=== PATIENT | female | born 2000 ===

== ENCOUNTER 2023-08-08 21:11 | Emergency (ER) | payer OTHER, SELFPAY ==
[2023-08-08 21:16] VITALS: BP 112/79; PULSE 74; RESP 14; TEMP 37.2; O2SAT 98; BMI 22.5
[2023-08-08 21:37] LABS: MANUAL DIFF FLAG NO
[2023-08-08 21:39] LABS: Appearance Urine Hazy; Color Urine Orange; Glucose Urine UA 100 mg/dL (Negative); Leukocyte Esterase Urine Large (3+) (Negative); PH 5.5 (5.0-9.0); Specific Gravity - Urine 1.015 (1.005-1.025); UMIC TRIGGER UACC YES; Urine Blood Large (3+) (Negative); Urine Ketones Trace mg/dL (Negative); Urine Protein 30 (1+) mg/dL (Neg-Trace)
[2023-08-08 21:40] LABS: UPreg QC Valid YES; Urine Pregnancy NEGATIVE (NEGATIVE)
[2023-08-08 21:40] LABS: Basophils Absolute Auto 0.1 X10*3/uL (0.0-0.2); Basophils Percent Auto 0.5 % (0-2); Eosinophils Absolute Auto 0.1 X10*3/uL (0.0-0.4); Eosinophils Percent Auto 0.8 % (0-4); Hematocrit 36.9 % (37.0-47.0); Hemoglobin 12.4 g/dl (12.0-16.0); Imm Gran Abs Auto 0.02 X10*3/uL (0.00-0.03); Imm Gran Pct Auto 0.2 % (0.0-0.4); Lymphocytes Absolute Auto 3.1 X10*3/uL (1.2-4.9); Lymphocytes Percent Auto 25.1 % (20-40); Mean Corpuscular HGB Conc 33.6 g/dl (31.0-35.0); Mean Corpuscular Hemoglobin 28.2 pg (27.0-33.0); Mean Corpuscular Volume 84.1 fL (80.0-98.0); Mean Platelet Volume 9.2 fL (9.4-12.3); Monocytes Percent Auto 8.3 % (2-11); Neutrophils Percent Auto 65.1 % (45-73); Platelet Count 280 X10*3/uL (160-400); Red Blood Count 4.39 X10*6/uL (4.20-5.50); Red Cell Distribution Width 13.1 % (11.0-16.0); White Blood Count 12.2 X10*3/uL (4.8-10.8)
[2023-08-08 21:41] LABS: Nitrite Urine Positive (Negative)
[2023-08-08 21:44] LABS: Bacteria Urine 2+ (None Seen); Hyaline Casts Urine 0-2 /LPF (0-2); RBC Urine >20 /HPF (0-2); UACC Culture Trigger YES; WBC Urine >50 /HPF (0-5)
[2023-08-08 22:20] LABS: Anion Gap 15 (12-20); Blood Urea Nitrogen 15 mg/dL (9-16); Calcium 9.6 mg/dL (8.4-10.2); Carbon Dioxide 22 mmol/L (22-29); Chloride 107 mmol/L (96-108); Creatinine Clr Calc Pharmacy 91.2; Estimated Glomerular Filt Rate > 60; Glucose Random 74 mg/dL (60-115); Potassium 3.7 mmol/L (3.3-5.1); Sodium 140 mmol/L (135-145)
--- NOTE | 2023-08-09 00:46 | ED.GENADULT ---
HPI - General Adult General Chief complaint: Abdominal Pain Stated complaint: lower abd pain Time Seen by Provider: 08/09/23 00:34 Source: patient Mode of arrival: ambulatory Limitations: no limitations History of Present Illness HPI narrative: Patient comes to the emergency room complaining of 2 days of dysuria and hematuria. Patient denies flank pain. Patient complaining of suprapubic discomfort and cramping after urination. Patient denies fever or chills. Patient denies nausea or vomiting. Related Data Previous Rx's Medication Instructions Recorded levofloxacin 500 mg tablet 500 mg PO DAILY #6 tabs 08/09/23 phenazopyridine 100 mg tablet 100 mg PO TID 6 doses #6 tabs 08/09/23 Allergies Allergy/AdvReac Type Severity Reaction Status Date / Time No Known Allergies Allergy Verified 08/08/23 21:22 Review of Systems Review of Systems: Constitutional : No Weight loss, No Fever, No Chills, No Night Sweats, No Fatigue, No Malaise ENT/Mouth : No Hearing loss, No Ear Pain, No Nasal Congestion, No Sinus Pain, No Hoarseness, No sore throat, No Rhinorrhea, No Swallowing Difficulty Eyes: No Eye Pain, No Swelling, No Redness, No Foreign Body, No Discharge, No Vision Changes Cardiovascular : No Chest Pain, No SOB, No Dyspnea on Exertion, No Orthopnea, No Edema, No Palpitations Respiratory : No Cough, No Sputum, No Wheezing, No Smoke Exposure, No Dyspnea Gastrointestinal : No Nausea, No Vomiting, No Diarrhea, No Constipation, No abdominal Pain, No Hematochezia, No Melena Genitourinary : Complaining of Dysuria, urinary frequency and Hematuria, No Urinary Incontinence, No Flank Pain, No Urinary Flow Changes, No Hesitancy Musculoskeletal : No joint pain, No Myalgias, No Joint Swelling Skin : No Skin Lesions, No rash Neuro : No Weakness, No Numbness, No Paresthesias, No Loss of Consciousness, No Dizziness, No Headache Psych : No Anxiety/Panic, No Depression, No SI/HI/AH/VH, No Social Issues, Heme/Lymph: No Bruising, No Bleeding,No Lymphadenopathy Endocrine : No Polyuria, No Polydipsia, No Temperature Intolerance Physical Exam ED Vital Signs: Vital Signs - 24 hr 08/08/23 21:16 Temperature 98.9 F Pulse Rate 74 Respiratory Rate 14 Blood Pressure 112/79 Pulse Oximetry 98 Oxygen Delivery Method Room Air BMI result Body Mass Index 22.5 Const Other: Appearance: Alert. Oriented X3. No acute distress. Eyes: Pupils equal, round and reactive to light. ENT: Pharynx normal. Neck: Normal inspection. Neck supple. No lymph nodes noted. No crepitus CVS: Normal heart rate and rhythm. Pulses normal. Normal S1 and S2 Respiratory: No respiratory distress. Breath sounds normal. No Wheezing. No rales Abdomen: Soft and nontender. No rigidity. No distention. No flank pain Skin: Skin warm and dry. Normal skin color. Normal skin turgor. Extremities: No lower extremity edema. No Lacerations. No Rash Neuro: Oriented X 3. No motor deficit. No sensory deficit. Moving all extremities. No slurred speech. CN 2 through 12 grossly intact Psych: calm, cooperative, normal affect Medical Decision Making Medical Decision Making [facility] Narrative: -my interpretation of labs: White blood cell count 12.2, chemistry unremarkable, urinalysis positive for UTI. -patient has no fever, no flank pain, normal vitals, well-appearing, sepsis not suspected, pyelonephritis and kidney stones not suspected either. 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 Patient was provided with the phone number of Dr. Portillo's office Differential Diagnosis Differential Diagnoses: The differential diagnosis associated with the presentation includes (UTI, pyelonephritis, kidney stones) Lab Data [facility] Lab Attestation statement: I reviewed the patient's lab results. 08/08/23 21:31 08/08/23 21:31 Labs: Lab Results 08/08/23 08/08/23 Range/Units 21:31 21:32 WBC 12.2 H (4.8-10.8) X10*3/uL RBC 4.39 (4.20-5.50) X10*6/uL Hgb 12.4 (12.0-16.0) g/dl Hct 36.9 L (37.0-47.0) % MCV 84.1 (80.0-98.0) fL MCH 28.2 (27.0-33.0) pg MCHC 33.6 (31.0-35.0) g/dl RDW 13.1 (11.0-16.0) % Plt Count 280 (160-400) X10*3/uL MPV 9.2 L (9.4-12.3) fL Immature Gran % (Auto) 0.2 (0.0-0.4) % Neut % (Auto) 65.1 (45-73) % Lymph % (Auto) 25.1 (20-40) % [place] % (Auto) 8.3 (2-11) % Eos % (Auto) 0.8 (0-4) % Baso % (Auto) 0.5 (0-2) % Lymph # (Auto) 3.1 (1.2-4.9) X10*3/uL [place] # (Auto) 1.0 (0.1-1.2) X10*3/uL Eos # (Auto) 0.1 (0.0-0.4) X10*3/uL Baso # (Auto) 0.1 (0.0-0.2) X10*3/uL Abs Immat Gran (auto) 0.02 (0.00-0.03) X10*3/uL Absolute Neuts (auto) 8.0 (2.0-8.3) x10*3/uL Absolute Nucleated RBC 0.000 (0.0-0.012) X10*3/uL Nucleated RBC % (auto) 0.0 (0.0-0.2) /100WBC Sodium 140 (135-145) mmol/L Potassium 3.7 (3.3-5.1) mmol/L Chloride 107 (96-108) mmol/L Carbon Dioxide 22 (22-29) mmol/L Anion Gap 15 (12-20) BUN 15 (9-16) mg/dL Creatinine 0.80 (0.5-1.4) mg/dL Estim Creat Clear Calc 91.2 Estimated GFR > 60 Random Glucose 74 (60-115) mg/dL Calcium 9.6 (8.4-10.2) mg/dL Urine Color [place] Urine Appearance Hazy Urine pH 5.5 (5.0-9.0) Ur Specific [place] 1.015 (1.005-1.025) Urine Protein 30 (1+) H (Neg-Trace) mg/dL Urine Glucose (UA) 100 H (Negative) mg/dL Urine Ketones Trace (Negative) mg/dL Urine Blood Large (3+) H (Negative) Urine Nitrite Positive H (Negative) Ur Leukocyte Esterase Large (3+) H (Negative) Urine RBC >20 H (0-2) /HPF Urine WBC >50 H (0-5) /HPF Ur Squamous Epith Cells 11-20 (0-2) /HPF Urine Bacteria 2+ (None Seen) Hyaline Casts 0-2 (0-2) /LPF Urine Test NEGATIVE (NEGATIVE) Discharge Plan Discharge Clinical Impression: Urinary tract infection Patient Disposition: Home, Self-Care Instructions: Urinary Tract Infection in Women (ED) Additional Instructions: Please follow-up with your primary care physician tomorrow. If you have any worsening or new symptoms, please return to the emergency room or call 911 Prescriptions: New levofloxacin 500 mg tablet 500 mg PO DAILY Qty: 6 0RF phenazopyridine 100 mg tablet 100 mg PO TID Qty: 6 0RF Referrals: Rupert Portillo MD [Physician] - (establishing care )
[2023-08-09] MEDS: levoFLOXacin 500 MG TABLET PO (01:40)
[2023-08-09 01:41] VITALS: BP 119/66; PULSE 80; RESP 16; O2SAT 98
[2023-08-09] MEDS: Phenazopyridine HCL 100 MG TABLET PO (01:41)
== END 2023-08-09 01:47 | disposition home or self-care (01) ==
PROVIDERS: Emergency Provider Emergency Medicine
DX: N39.0 Urinary tract infection, site not specified (principal); B96.20 Unspecified Escherichia coli [E. coli] as the cause of diseases classified elsewhere
CPT/HCPCS: 36415; 80048; 81001; 81025; 85025; 87086; 87088; 87186; 99283; 99284

== ENCOUNTER 2023-11-12 05:38 | Emergency (ER) | payer OTHER, SELFPAY ==
[2023-11-12 05:53] VITALS: BP 126/59; PULSE 76; RESP 18; TEMP 37; O2SAT 99; BMI 23.3
[2023-11-12 06:05] LABS: MANUAL DIFF FLAG NO
[2023-11-12 06:06] LABS: Basophils Percent Auto 0.3 % (0-2); Eosinophils Absolute Auto 0.1 X10*3/uL (0.0-0.4); Hematocrit 34.8 % (37.0-47.0); Hemoglobin 11.3 g/dl (12.0-16.0); Imm Gran Abs Auto 0.03 X10*3/uL (0.00-0.03); Imm Gran Pct Auto 0.3 % (0.0-0.4); Lymphocytes Absolute Auto 2.5 X10*3/uL (1.2-4.9); Lymphocytes Percent Auto 23.4 % (20-40); Mean Corpuscular HGB Conc 32.5 g/dl (31.0-35.0); Mean Corpuscular Hemoglobin 27.6 pg (27.0-33.0); Mean Corpuscular Volume 85.1 fL (80.0-98.0); Mean Platelet Volume 9.4 fL (9.4-12.3); Monocytes Absolute Auto 0.8 X10*3/uL (0.1-1.2); Platelet Count 248 X10*3/uL (160-400); Red Blood Count 4.09 X10*6/uL (4.20-5.50); Red Cell Distribution Width 13.2 % (11.0-16.0); White Blood Count 10.5 X10*3/uL (4.8-10.8)
--- NOTE | 2023-11-12 06:06 | MHC.EDTECH ---
Patient brought into triage,labs,and a urine sample obtained and sent to lab.patient brought to ED room 1
[2023-11-12 06:08] LABS: UPreg QC Valid YES; Urine Pregnancy NEGATIVE (NEGATIVE)
[2023-11-12 06:12] LABS: Appearance Urine Turbid; Color Urine BROWN; Glucose Urine UA Negative (Negative); Leukocyte Esterase Urine Negative (Negative); Nitrite Urine Negative (Negative); Specific Gravity - Urine >= 1.030 (1.005-1.025); UMIC TRIGGER UACC YES; Urine Blood Large (3+) (Negative); Urine Ketones Negative (Negative); Urine Protein 300 (3+) mg/dL (Neg-Trace)
[2023-11-12 06:16] LABS: Bacteria Urine 2+ (None Seen); Hyaline Casts Urine 0-2 /LPF (0-2); RBC Urine >20 /HPF (0-2); UACC Culture Trigger YES; WBC Urine >50 /HPF (0-5)
[2023-11-12 06:26] LABS: Alanine Aminotransferase 9 U/L (0-31); Albumin Level 3.9 g/dL (3.5-5.0); Alkaline Phosphatase 41 U/L (39-117); Anion Gap 11 (12-20); Aspartate Amino Transferase 15 U/L (5-31); Bilirubin Total 0.6 mg/dL (0.0-1.0); Blood Urea Nitrogen 13 mg/dL (9-16); Carbon Dioxide 24 mmol/L (22-29); Chloride 108 mmol/L (96-108); Creatinine Clr Calc Pharmacy 93.4; Estimated Glomerular Filt Rate > 60; Glucose Random 106 mg/dL (60-115); Lipase 16 U/L (8-78); Potassium 3.6 mmol/L (3.3-5.1); Sodium 139 mmol/L (135-145); Total Protein 6.7 g/dL (6.5-8.0)
--- NOTE | 2023-11-12 06:37 | PC.NURSE ---
Pt reports suprapubic pain 10/10 x1 day with burning, frequency, and hematuria. Pt denies flank pain, n/v/d. Pt reports IUD placed about a month ago. Family at bedside. Plan of care ongoing.
--- NOTE | 2023-11-12 06:38 | ED_ITS ---
HPI - Female Genitourinary General Chief complaint: Urogenital-Female Stated complaint: ?UTI Time Seen by Provider: 11/12/23 06:34 Source: patient Mode of arrival: ambulatory Limitations: no limitations History of Present Illness HPI Narrative: Patient is a 22 year old assigned female at with no reported medical history presenting to the emergency department today with lower abdominal pain with associated pain with urination and increased urinary frequency. Patient states that over the last 2 days she has had lower abdominal pain with increased urinary pain and burning. Patient denies any dizziness, lightheadedness, abdominal pain, nausea, vomiting, fever, chills, blurry vision, double vision, loss of vision, chest pain, difficulty breathing, shortness of breath, back pain, night sweats, pain with urination, increased urinary frequency, increased urinary urgency, blood in her urine or stool, syncope or a near syncopal episode, recent trauma or falls, bowel incontinence, bladder incontinence, bowel retention, bladder retention, or any other complaints at this time. MD elicited complaint: dysuria Related Data Previous Rx's Medication Instructions Recorded levofloxacin 500 mg tablet 500 mg PO DAILY #6 tabs 08/09/23 phenazopyridine 100 mg tablet 100 mg PO TID 6 doses #6 tabs 08/09/23 cefuroxime axetil 250 mg tablet 250 mg PO BID 7 days #14 tabs 11/12/23 Allergies Allergy/AdvReac Type Severity Reaction Status Date / Time No Known Allergies Allergy Verified 11/12/23 05:56 Review of Systems 2 Constitutional: Constitutional: Reports no additional constitutional complaints, Denies chills, Denies fever(s) and Denies night sweats Eyes: Eyes: Reports no additional eye complaints, Denies blurry vision, Denies change in vision, Denies diplopia, Denies eye discharge, Denies loss of vision and Denies eye pain ENT: Denies dizziness Cardiovascular: Cardiovascular: Reports no additional cardiovascular complaints, Denies chest pain, Denies lightheadedness, Denies Loss of Consciousness and Denies dyspnea Respiratory: Respiratory: Reports no additional respiratory complaints and Denies dyspnea Gastrointestinal: Gastrointestinal: Reports no additional gastrointestinal complaints, Reports abdominal pain, Denies melena, Denies hematochezia, Denies change in bowel habits and Denies change in stool character Genitourinary: Genitourinary: Denies hematuria, Denies urinary frequency, Reports dysuria, Denies urinary incontinence and Denies urinary hesitancy Musculoskeletal: Musculoskeletal: Reports no additional musculoskeletal complaints, Denies numbness and Denies tingling Neurologic: Denies dizziness, Denies loss of vision, Denies numbness and Denies tingling Psychiatric: Psychiatric: Reports no additional psychiatric complaints Endocrine: Endocrine: Reports no additional endocrine complaints Hematologic/Lymphatic: Hematologic/Lymphatic: Reports no additional hematologic/lymphatic complaints Allergic/Immunologic: Allergic/Immunologic: Reports no additional allergic/immunologic complaints ON LICENSE OF [facility] Past Medical History Attestation statement: The following information was validated with the patient. Source: old records reviewed and nursing notes reviewed Social History Social History Alcohol intake: never Smoked in Last 30 Days: No Use of substances other than those prescribed or required for medical reasons: No Advance Directives: No Advance Directives Information Provided: Yes Physical Exam 2 Vital Signs: Vital Signs: Last Vital Signs Temp 98.1 F 11/12/23 07:37 Pulse 78 11/12/23 07:37 Resp 18 11/12/23 07:37 BP 104/61 11/12/23 07:37 Pulse Ox 98 11/12/23 07:37 O2 Del Method Room Air 11/12/23 07:37 BMI result Body Mass Index 23.3 Const: General: cooperative, no acute distress, alert and awake Nutritional Appearance: well nourished Orientation/consciousness: patient oriented x3 Limitations: no limitations HEENT: Head: Yes normal to inspection and Yes atraumatic Ears: hearing grossly normal bilaterally and external ears normal General nose exam: Normal external nose present, no nasal discharge noted and no epistaxis Face and sinus: Yes normal facial exam, No abrasion and No laceration Mouth: Normal oral and palatal mucosa present, no drooling and no muffled voice Eyes: General: appearance normal, both eyes and all related structures P eriorbital: periorbital findings normal Eyelids: Yes eyelids normal C onjunctivae: conjunctivae normal Pupils: Equal, round and reactive pupils present EOM: EOMs intact bilaterally Neck: Neck: Yes normal visual inspection, Yes full ROM and Yes no lymphadenopathy Chest: Chest palpation & inspection: normal inspection of the chest Resp: Effort & Inspection: normal respiratory effort and able to speak in complete sentences GI: Inspection: Yes normal to inspection Palpation (GI): Soft to palpation, not firm, nontender and no guarding Neuro: General: patient oriented x3 and moves all extremities Cranial nerves: Yes Equal, round and reactive pupils present Cognition (Neuro): n ormal cognition Motor exam (neuro): 5/5 motor strength present throughout Sensory Exam: Normal double simultaneous stimulation for sensation C oordination: [id number] test normal Extrem: General: Yes normal to inspection, Yes full ROM and Yes capillary refill normal Psych: Appearance: grossly normal Mental Status: mental status grossly normal Affect: normal affect Attitude: cooperative Thought process: N ormal thought process present Thought content: Normal thought content present Insight: Good insight present (Psych) Medications Administered Discontinued Medications Generic Name Dose Route Start Last Admin Trade Name Jayy PRN Reason Stop Dose Admin Cefuroxime Axetil 250 mg 11/12/23 06:56 11/12/23 07:39 Cefuroxime Axetil 250 Mg Tablet PO 11/12/23 06:57 250 mg ONCE ONE Administration Medical Decision Making Medical Decision Making [facility] Narrative: Patient is a 22 year old assigned female at with no reported medical history presenting to the emergency department today with abdominal pain and painful urination. Patient's physical exam was unremarkable. Patient's blood work was unremarkable. Patient's urine showed evidence of a UTI. I explained my physical exam findings as well as all test results to the patient. I answered all questions asked by the patient. I stressed the importance of the patient taking her medication as prescribed. I stressed the importance of the patient following up with her primary care provider. I stressed the importance of the patient returning to the emergency department immediately if her symptoms were to worsen or if she were to develop any dizziness, shortness of breath, difficulty breathing, chest pain, blurry vision, loss of vision, nausea, vomiting, abdominal pain, fever, chills, back pain, or any other complaints. Patient verbalized agreement and understanding with this treatment plan and discharge. Differential Diagnosis Differential Diagnoses: The differential diagnosis associated with the presentation includes UTI Abdominal pain Admission/Observation Consideration of admission/observation: Escalation of care including admission/observation considered Patient would have been admitted to the hospital had her work up had any findings where hospital admission was appropriate and her clinical presentation warranted hospital admission. Lab Data [facility] Lab Attestation statement: I reviewed the patient's lab results. My interpretation of these results are in the MDM Rationale portion of this note. 11/12/23 05:59 11/12/23 05:59 Labs: Lab Results 11/12/23 Range/Units 05:59 WBC 10.5 (4.8-10.8) X10*3/uL RBC 4.09 L (4.20-5.50) X10*6/uL Hgb 11.3 L (12.0-16.0) g/dl Hct 34.8 L (37.0-47.0) % MCV 85.1 (80.0-98.0) fL MCH 27.6 (27.0-33.0) pg MCHC 32.5 (31.0-35.0) g/dl RDW 13.2 (11.0-16.0) % Plt Count 248 (160-400) X10*3/uL MPV 9.4 (9.4-12.3) fL Immature Gran % (Auto) 0.3 (0.0-0.4) % Neut % (Auto) 67.0 (45-73) % Lymph % (Auto) 23.4 (20-40) % [place] % (Auto) 8.0 (2-11) % Eos % (Auto) 1.0 (0-4) % Baso % (Auto) 0.3 (0-2) % Lymph # (Auto) 2.5 (1.2-4.9) X10*3/uL [place] # (Auto) 0.8 (0.1-1.2) X10*3/uL Eos # (Auto) 0.1 (0.0-0.4) X10*3/uL Baso # (Auto) 0.0 (0.0-0.2) X10*3/uL Abs Immat Gran (auto) 0.03 (0.00-0.03) X10*3/uL Absolute Neuts (auto) 7.0 (2.0-8.3) x10*3/uL Absolute Nucleated RBC 0.000 (0.0-0.012) X10*3/uL Nucleated RBC % (auto) 0.0 (0.0-0.2) /100WBC Sodium 139 (135-145) mmol/L Potassium 3.6 (3.3-5.1) mmol/L Chloride 108 (96-108) mmol/L Carbon Dioxide 24 (22-29) mmol/L Anion Gap 11 L (12-20) BUN 13 (9-16) mg/dL Creatinine 0.85 (0.5-1.4) mg/dL Estim Creat Clear Calc 93.4 Estimated GFR > 60 Random Glucose 106 (60-115) mg/dL Calcium 9.0 D (8.4-10.2) mg/dL Total Bilirubin 0.6 (0.0-1.0) mg/dL AST 15 (5-31) U/L ALT 9 (0-31) U/L Alkaline Phosphatase 41 (39-117) U/L Total Protein 6.7 (6.5-8.0) g/dL Albumin 3.9 (3.5-5.0) g/dL Lipase 16 (8-78) U/L Urine Color [place] Urine Appearance Turbid Urine pH 6.0 (5.0-9.0) Ur Specific [place] >= 1.030 H (1.005-1.025) Urine Protein 300 (3+) H (Neg-Trace) mg/dL Urine Glucose (UA) Negative (Negative) mg/dL Urine Ketones Negative (Negative) mg/dL Urine Blood Large (3+) H (Negative) Urine Nitrite Negative (Negative) Ur Leukocyte Esterase Negative (Negative) Urine RBC >20 H (0-2) /HPF Urine WBC >50 H (0-5) /HPF Ur Squamous Epith Cells 6-10 (0-2) /HPF Urine Bacteria 2+ (None Seen) Hyaline Casts 0-2 (0-2) /LPF Urine Test NEGATIVE (NEGATIVE) Prescription Management I considered prescription management with: Antibiotic (patient prescribed an antibiotic for UTI) Discharge Plan Discharge Clinical Impression: Urinary tract infection Patient Disposition: Home, Self-Care Instructions: Urinary Tract Infection in Women (DC) Additional Instructions: Follow up with your primary care provider. Return to the emergency department immediately if your symptoms worsen or if you develop any dizziness, shortness of breath, difficulty breathing, chest pain, blurry vision, loss of vision, nausea, vomiting, abdominal pain, fever, chills, back pain, or any other complaints. Prescriptions: New cefuroxime axetil 250 mg tablet 250 mg PO BID 7 Days Qty: 14 0RF No Action levofloxacin 500 mg tablet 500 mg PO DAILY Qty: 6 0RF phenazopyridine 100 mg tablet 100 mg PO TID Qty: 6 0RF [place] [facility] [place] [facility] [place] (Call to establish and follow up with a primary care provider. If you already have a primary care provider, please follow up with them.) [facility] [place] [facility] [place] (Call to establish and follow up with a primary care provider. If you already have a primary care provider, please follow up with them.) [facility] [place] [facility] [place] (Call to establish and follow up with a primary care provider. If you already have a primary care provider, please follow up with them.) Interventions: ED Discharge Assessment Last Done: 11/12/23 07:43 Discharge Date/Time: 11/12/23 07:46 Print Language: [place]
--- OUTSIDE RECORDS SUMMARY | 2023-11-12 06:51 | XMS_ITS | Patient Health Record ---
Author Name Unknown Organization [facility] 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 Unavailable Flakita vailable ALLERGIES No Known Allergies ENCOUNTERS from 2000 to 2023-11-12 Encounter Location Date Provider Diagnosis OB/CDE-[address] [place] [address] 19 Sep, 2023 Usha Morales Encounter for insertion of intrauterine contraceptive device (IUD) Z30.430 OB/CDE-[address] [place], [place] [id number] 12 Sep, 2023 Fouzia Flater Pelvic cramping R10. 2 and control counseling Z30.09 Peds-[address] [place], [place] [id number] 06 Sep, 2023 Fouzia Flater OB/CDE-[address] [place] [address] 17 Aug, 2023 Fouzia Flater Pelvic pain R10.2 Peds-[address] [place], [place] [id number] 13 Aug, 2023 [facility] SOCIAL HISTORY Tobacco Use: Social History Observation Description Date Details (start date - stop date) Never Smoker Sex Assigned At : Social History Observation Description Sex Assigned At Unknown Alcohol Screen Question Answer Notes Did you have a drink containing alcohol in the p ast year? No Points 0 Interpretation Negative Tobacco Use/Smoking Question Answer Notes Are you a never smoker Sexual History Question Answer Notes Had sex in the past 12 months (vaginal, oral, or anal)? Yes Last menstrual period 08/2023 with Men only Use protection? No REASON FOR REFERRAL No Information VITAL SIGNS from 2000 to 2023-11-12 Weight 145.4 lbs Sep, Height 65 in in Sep, Heart Rate 74 /min Sep, Respiratory Rate 18 /min Sep, BMI 24.19 kg/m2 Sep, Oximetry 97 % Sep, Height-cm 165.1 cm Sep, Weight-kg 65.95 kg Sep, Blood pressure systolic 112 mm Hg Sep, Blood pressure diastolic 69 mm Hg Sep, MEDICATIONS Medication SIG (Take, Route, Frequency, Duration) Notes Start Date End Date Status Liletta (52 MG) 20.1 MCG/DAY as directed Intrauterine for 365 days 10/08 insertion [id number] Active Ibuprofen 800 MG 1 tablet with food o r milk as needed Orally every 8 hrs for 3 days Active Depo-Provera 150 MG/ML 1 mL Intramuscular Active RESULTS from 2000 to 2023-11-12 Component Value Reference Range Notes Test, Urine# Reviewed date:10/08/2023 12:20:51 Interpretation:Negative Performing Lab:[place], [id number] Notes/Report: Test Internal PASS Test, Urine NEG negative - Urinalysis# Reviewed date:10/01/2023 12:20:13 Interpretation: Performing Lab:[place], [id number] Notes/Report: Cuff Folder Performed pass Lot Number [id number] GLU neg Negative - DASIA 1 Negative - KET neg Negative - Specific [place] 1.020 1.001 - 1.035 Blood 250 Negative - pH 5 5 - 8 Protein 30 Negative - Urobiligen 2 Normal - Nitrite neg Negative - Leukocyle Esterase 25 Negative - RBC WBC SURESWAB ADVANCED VAGINITIS PLUS, TMA Reviewed date:10/02/2023 16:33:45 Interpretation: Performing Lab:[facility] [place], [facility], [address] [place] [address], [id number] Evelyn Joseph M.D., ,[place], [address] Notes/Report: MYLES GLABRATA NOT DETECTED NOT DETECTED MYLES SPECIES NOT DETECTED NOT DETECTED CHLAMYDIA TRACHOMATIS RNA, TMA, UROGENITAL NOT DETECTE D NOT DETECTED NEISSERIA GONORRHOEAE RNA, TMA, UROGENITAL NOT DETECTE D NOT DETECTED SURESWAB(R) ADV BACTERIAL VAGINOSIS (BV), TMA NEGATIVE NEGATIVE TRICHOMONAS VAGINALIS (TV), TMA NOT DETECTED NOT DETEC GILL CULTURE, URINE, ROUTINE Reviewed date:10/04/2023 11:01:15 Interpretation:mixed Performing Lab:[facility] [place], [employer], [address] [place] [address], [phone] Evelyn [address] M[place]., ,[place], [id number] Notes/Report: CULTURE, URINE, ROUTINE SEE NOTE Ultrasound : Pelvic Non/OB Reviewed date:09/26/2023 16:10:00 Interpretation:normal Performing Lab:[place], [address] Notes/Report: REASON FOR VISIT No Information MENTAL STATUS No Information ASSESSMENTS Encounter Date Diagnosis Assessment Notes Treatment Notes Treatment Clinical Notes Sep, Encounter for insertion of intrauterine contraceptive device (IUD) (ICD-10 - Z30.430) IUD placed without incident. Discussed common s/e and irregular bleeding pattern with device. Nothing in the vagina x 48 hours. Ibuprofen every 6 hours as needed for pain. Advised yearly string check with annual exams. Use back up control method or abstain from intercourse x 7 days. Patient verbalized understanding and agreement with plan. Sep, Pelvic cramping (ICD-10 - R10.2) May be secondary to depo use. Negative ultrasound completed. Given hx of UTI, will recheck urine today. Will also send for swab to r/o infection and complete STD screening prior to IUD insertion. Rev'd safe sex practices, ways to maintain vaginal christine. Encouraged daily probiotic. Discussed warning signs and when to seek additional medical treatment, patient verbalized agreement and understanding. Sep, control counseling (ICD-10 - Z30.09) Patient interested in alternative method of control. She had regular periods prior to OCP use, which have only worsened with depo and she would like to discontinue at this time. Rev'd options for control including pills, patch, ring, injection, implant, IUD. Patient interested in IUD at this time. Patient informed that IUD may be used up to 8 years. Effects of progestin may cause spotting or irregular menses, especially during the first 3 months of use. Also informed that LNG IUD method may cause amenorrhea, especially with prolonged use. Reviewed the small risk of infection, perforation, or expulsion. Rx sent for device, instructed to premedicate with NSAID on day of insertion. Insertion scheduled for next week. Patient verbalized agreement and understanding, all questions answered. Aug, Pelvic pain (ICD-10 - R10.2) Discussed various reasons for pelvic pain including: sexually transmitted infections, uterine fibroids, ovarian cysts, torsion, pelvic congestion, and idiopathic pain. Recent infection testing unremarkable aside from UTI which has resolved. Counseled on option for diagnostic imaging. Pt is requesting imaging at this time. Fax sent and pt provided with info to call to schedule appt. Advised heat therapy and NSAIDs prn. Will follow up to discuss alternative control options pending results of ultrasound. Discussed warning signs and when to seek additional medical treatment, patient verbalized agreement and understanding. PLAN OF TREATMENT Medication Medication Name Sig Start Date Stop Date Ibuprofen 800 MG 1 tablet with food o r milk as needed Orally every 8 hrs for 3 days Treatment Notes Assessment Notes Clinical Notes Pelvic cramping May be secondary to depo use. Negative ultrasound completed. Given hx of UTI, will recheck urine today. Will also send for swab to r/o infection and complete STD screening prior to IUD insertion. Rev'd safe sex practices, ways to maintain vaginal christine. Encouraged daily probiotic. Discussed warning signs and when to seek additional medical treatment, patient verbalized agreement and understanding. control counseling Patient interested in alternative method of control. She had regular periods prior to OCP use, which have only worsened with depo and she would like to discontinue at this time. Rev'd options for control including pills, patch, ring, injection, implant, IUD. Patient interested in IUD at this time. Patient informed that IUD may be used up to 8 years. Effects of progestin may cause spotting or irregular menses, especially during the first 3 months of use. Also informed that LNG IUD method may cause amenorrhea, especially with prolonged use. Reviewed the small risk of infection, perforation, or expulsion. Rx sent for device, instructed to premedicate with NSAID on day of insertion. Insertion scheduled for next week. Patient verbalized agreement and understanding, all questions answered. Pelvic pain Discussed variou s reasons for pelvic pain including: sexually transmitted infections, uterine fibroids, ovarian cysts, torsion, pelvic congestion, and idiopathic pain. Recent infection testing unremarkable aside from UTI which has resolved. Counseled on option for diagnostic imaging. Pt is requesting imaging at this time. Fax sent and pt provided with info to call to schedule appt. Advised heat therapy and NSAIDs prn. Will follow up to discuss alternative control options pending results of ultrasound. Discussed warning signs and when to seek additional medical treatment, patient verbalized agreement and understanding. Encounter for insertion of intrauterine contraceptive device (IUD) IUD placed without incident. Discussed common s/e and irregular bleeding pattern with device. Nothing in the vagina x 48 hours. Ibuprofen every 6 hours as needed for pain. Advised yearly string check with annual exams. Use back up control method or abstain from intercourse x 7 days. Patient verbalized understanding and agreement with plan. Next Appt Details Provider Name:Usha Morales, 01:00:00 PM, [address] [place], [id number], Provider Name:Asuncion fry, 2023-12-16 10:00:00 AM, [address] [place], [address],
[2023-11-12 07:37] VITALS: BP 104/61; PULSE 78; RESP 18; TEMP 36.7; O2SAT 98
[2023-11-12] MEDS: cefuroxime axetiL 250 MG TABLET PO (07:39)
== END 2023-11-12 07:46 | disposition home or self-care (01) ==
PROVIDERS: Emergency Provider Emergency Medicine Emergency Medical Services
DX: N39.0 Urinary tract infection, site not specified (principal)
CPT/HCPCS: 36415; 80053; 81001; 81025; 83690; 85025; 87086; 99283; 99284

== ENCOUNTER 2023-12-17 00:27 | Emergency (ER) | payer OTHER, SELFPAY ==
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
[2023-12-17 00:30] VITALS: BP 109/65; PULSE 102; RESP 18; TEMP 36.8; O2SAT 98; BMI 24.1
[2023-12-17 00:55] VITALS: BP 115/68; PULSE 91; RESP 16; TEMP 36.9; O2SAT 98
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
[2023-12-17] MEDS: Morphine Sulfate Immed Release 15 MG TABLET PO (03:05)
[2023-12-17 05:10] VITALS: BP 109/58; PULSE 77; RESP 16; O2SAT 98
[2023-12-17] MEDS: oxyCODONE HCl Immed Release 5 MG TABLET 10 MG PO (06:42)
[2023-12-17] MEDS: Ibuprofen 600 MG TABLET PO (06:43)
== END 2023-12-17 06:56 | disposition home or self-care (01) ==
PROVIDERS: Emergency Provider Internal Medicine
DX: S83.91XA Sprain of unspecified site of right knee, initial encounter (principal); S83.92XA Sprain of unspecified site of left knee, initial encounter; M25.562 Pain in left knee; M25.561 Pain in right knee; Y93.23 Activity, snow (alpine) (downhill) skiing, snowboarding, sledding, tobogganing and snow tubing; Y93.9 Activity, unspecified; Y92.9 Unspecified place or not applicable; Y99.8 Other external cause status; Z79.899 Other long term (current) drug therapy
CPT/HCPCS: 73700; 99284

== ENCOUNTER 2024-02-06 19:32 | Emergency (ER) | payer OTHER, SELFPAY ==
--- NOTE | ~2024-02-06 | CT_ITS ---
EXAMINATION: NONCONTRAST HEAD CT NONCONTRAST CERVICAL SPINE CT INDICATION INFORMATION: Fall COMPARISON: None TECHNIQUE: Separate noncontrast CT examinations of the head and cervical spine were performed. Coronal head CT images and coronal and sagittal cervical spine images were created at the technologist workstation. DLP: 1035 mGy-cm DOSE LOWERING TECHNIQUES: This CT examination was performed using dose optimization techniques as appropriate, variously including the following: - Automated exposure control - Adjustment of mA and/or kV according to patient size (this includes techniques or standardized protocols for targeted exams were dose is matched to indication/reason for exam; i.e. extremities or head) - Use of iterative reconstruction technique FINDINGS: Head: There is no evidence of acute intracranial hemorrhage or territorial infarction. No abnormal mass-effect or midline shift is seen. Gaviria to white matter differentiation is well preserved. No extra-axial fluid collections are identified. The ventricles are normal in size. There is no abnormal attenuation within the brain parenchyma. The osseous structures and soft tissues are normal. The mastoid air cells and visualized portions of the paranasal sinuses are well-aerated. Cervical spine: There is reversal of the normal cervical lordosis, which could be due to positioning or muscle spasm. There is anatomic alignment of the vertebral bodies and posterior elements. Vertebral body heights are maintained. Intervertebral disc spaces are preserved. No evidence of acute fracture. No prevertebral soft tissue swelling. Visualized portions of the lung apices are unremarkable. The thyroid gland is unremarkable. CT/CT cervical spine wo IV con IMPRESSION: No acute findings identified in the head or cervical spine. Reversal of the normal cervical lordosis could be due to positioning or muscle spasm.
[2024-02-06 20:15] VITALS: BP 110/65; PULSE 81; RESP 16; TEMP 36.3; O2SAT 98; BMI 23.3
--- NOTE | 2024-02-06 20:24 | ED_ITS ---
HPI - General Adult General Chief complaint: Fall Stated complaint: fell last night/neck pain Time Seen by Provider: 02/07/24 00:35 Source: patient, RN notes reviewed and old records reviewed Mode of arrival: ambulatory Limitations: no limitations History of Present Illness HPI narrative: 23-year-old female with no significant past medical history presents for evaluation of neck pain and headache. Patient reports that she fell approximately 24 hours ago hitting the left side of her neck and had a on a step She reports falling off approximately 2 steps She denies loss of consciousness She woke up this some morning with severe neck pain. Denies any numbness, tingling Denies any blurry vision, nausea vomiting She has not anticoagulated She used ibuprofen 8 hours ago with some relief in her symptoms Related Data Previous Rx's ?Medication ?Instructions ?Recorded levofloxacin 500 mg tablet 500 mg PO DAILY #6 tabs 08/09/23 phenazopyridine 100 mg tablet 100 mg PO TID 6 doses #6 tabs 08/09/23 cefuroxime axetil 250 mg tablet 250 mg PO BID 7 days #14 tabs 11/12/23 ibuprofen 600 mg tablet 600 mg PO Q6H PRN fever or pain 12/17/23 #30 tabs morphine 15 mg immediate release 15 mg PO Q8H PRN pain #20 tabs 12/17/23 tablet cyclobenzaprine 10 mg tablet 10 mg PO TID PRN muscle spasm #15 02/07/24 tabs Allergies Allergy/AdvReac Type Severity Reaction Status Date / Time No Known Allergies Allergy Verified 02/06/24 20:20 Review of Systems Constitutional: Constitutional: Denies body ache(s), Denies chills, Denies fever(s) and Reports headache(s) Eyes: Eyes: Denies blurry vision ENT: Reports headache(s), Reports neck pain and Denies sore throat Cardiovascular: Cardiovascular: Denies chest pain, Denies chest pain at rest and Denies dyspnea Respiratory: Respiratory: Denies cough and Denies dyspnea Gastrointestinal: Gastrointestinal: Denies abdominal pain, Denies nausea and Denies vomiting Musculoskeletal: Musculoskeletal: Denies back pain, Denies arthralgias, Denies joint swelling, Denies limited range of motion and Reports neck pain Integumentary/Breasts: Skin/Breast: Denies rash Neurologic: Reports headache(s) [facility] Social History Social History Alcohol intake: never Advance Directives: No Advance Directives Information Provided: Yes Physical Exam ED Vital Signs: Vital Signs - 24 hr 02/06/24 20:15 Temperature 97.4 F Pulse Rate 81 Respiratory Rate 16 Blood Pressure 110/65 Pulse Oximetry 98 Oxygen Delivery Method Room Air BMI result Body Mass Index 23.3 Const General: healthy appearing, comfortable, no acute distress, alert and awake Nutritional Appearance: well nourished Orientation/consciousness: patient oriented x3 HENMT Head: Yes normocephalic and Yes atraumatic Eyes Eyelids: Yes eyelids normal Conjunctivae: conjunctivae normal Sclerae: sclerae normal Corneas: corneas normal Pupils: Equal, round and reactive pupils present EOM: EOMs intact bilaterally Resp Effort & Inspection: normal respiratory effort, able to speak in complete sentences and not labored Back/Spine/Pelvis Cervical Spine: Cervical spine tenderness Skin General skin exam: elasticity normal Neuro General: patient oriented x3 Cranial nerves: Yes CN's II-XII intact bilaterally, Yes Equal, round and reactive pupils present and Yes Bilaterally intact EOM present Cognition (Neuro): normal cognition Extrem Other: Moving all extremities well without any obvious deformities Course Course Course Narrative: This is an RME: Additional HPI, ROS, PE not included below will be deferred to primary provider. 23 yo f presents with left sided neck tenderness secondary to fall yesterday. Denies shortness of breath, cp. Medical Decision Making Medical Decision Making MDM Narrative: 23-year-old female presents for evaluation after a fall. This is describes a nonsyncopal fall that happened yesterday. She denies any loss of consciousness. She complains of headache and neck pain she does have C-spine tenderness on exam. Will get a CT scan of the cervical spine and brain. However, she is neurologically intact, she has good strength in both upper extremities, no numbness or tingling. Will treat with Toradol 10 Differential Diagnosis Differential Diagnoses: The differential diagnosis associated with the p resentation includes Cervical strain Contusion Cervical fracture Intracranial hemorrhage Concussion Discharge Plan Discharge Clinical Impression: Cervical strain, Headache Patient Disposition: Still a Patient Instructions: Cervical Strain (ED), Acute Headache (ED) Additional Instructions: Continue to use ibuprofen/Tylenol as needed for pain. You may use cyclobenzaprine as needed for muscle spasms. This may make you sleepy, did not drink alcohol or drive after taking it Follow-up with your primary doctor Return for new or worsening symptoms Your CT scan today did not show any evidence of traumatic injuries Prescriptions: New cyclobenzaprine 10 mg tablet 10 mg PO TID PRN (Reason: muscle spasm) Qty: 15 0RF No Action morphine 15 mg tablet 15 mg PO Q8H PRN (Reason: pain) Qty: 20 0RF Rx Instructions: Partial Fill upon patient request. ibuprofen 600 mg tablet 600 mg PO Q6H PRN (Reason: fever or pain) Qty: 30 0RF levofloxacin 500 mg tablet 500 mg PO DAILY Qty: 6 0RF phenazopyridine 100 mg tablet 100 mg PO TID Qty: 6 0RF cefuroxime axetil 250 mg tablet 250 mg PO BID 7 Days Qty: 14 0RF Print Language: Lebanese
[2024-02-07] MEDS: Ketorolac Tromethamine 30 MG/ML VIAL IM (01:25)
[2024-02-07 03:40] VITALS: BP 108/68; PULSE 74; RESP 16; TEMP 36.6; O2SAT 100
[2024-02-07 03:41] VITALS: BP 108/68; PULSE 74; RESP 16; TEMP 36.6; O2SAT 100
== END 2024-02-07 03:42 | disposition home or self-care (01) ==
PROVIDERS: Emergency Provider Emergency Medicine
DX: S16.1XXA Strain of muscle, fascia and tendon at neck level, initial encounter (principal); R51.9 Headache, unspecified; W18.30XA Fall on same level, unspecified, initial encounter; Y93.9 Activity, unspecified; Y92.9 Unspecified place or not applicable; Y99.9 Unspecified external cause status
CPT/HCPCS: 70450; 72125; 96372; 99284; J1885

== ENCOUNTER 2024-02-24 08:15 | Outpatient (REF) | payer OTHER, SELFPAY ==
--- NOTE | ~2024-02-24 | XR_ITS ---
EXAMINATION: XR KNEE, LEFT AP upright of both knees CLINICAL INFORMATION: Pain in the left knee COMPARISON: X-rays of both knees November 2023 TECHNIQUE: 3 views of the left knee including AP upright of both knees. FINDINGS: Left knee: The bones joints soft tissues are normal. No fracture or degenerative change. Right knee limited AP upright: The visualized medial and lateral compartments are normal. The surrounding bone and soft tissues are normal. XR/XR knee LT 3V IMPRESSION: LEFT KNEE: Normal. RIGHT KNEE: Normal.
== END 2024-02-24 08:16 | disposition home or self-care (01) ==
LOC: HO.HOSX 08:15
PROVIDERS: Visit Provider Physician Assistant
DX: M25.562 Pain in left knee (principal)
CPT/HCPCS: 73562

== ENCOUNTER 2024-02-24 10:57 | Outpatient (AMB) | payer SELFPAY ==
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
[2024-02-24 11:03] VITALS: BMI 23.3
== END 2024-02-24 12:00 | disposition home or self-care (01) ==
PROVIDERS: Visit Provider Physician Assistant
DX: S83.411A Sprain of medial collateral ligament of right knee, initial encounter (principal); M22.2X1 Patellofemoral disorders, right knee; M22.2X2 Patellofemoral disorders, left knee
CPT/HCPCS: 99203

== ENCOUNTER 2024-07-06 09:54 | Emergency (ER) | payer OTHER, SELFPAY ==
--- NOTE | ~2024-07-06 | CT_ITS ---
EXAMINATION: CT ABDOMEN AND PELVIS WITH CONTRAST CLINICAL INFORMATION: Abdominal pain. COMPARISON: None available. TECHNIQUE: Multidetector volumetric images were obtained from the superior aspect of the liver through the pubic symphysis following administration 85 mL of Omnipaque 350 intravenous contrast. Sagittal and coronal reformatted images were obtained on the technologist's workstation. Oral contrast: No This CT examination was performed using dose optimization techniques as appropriate, variously including the following: *Automated exposure control *Adjustment of mA and/or kV according to patient size (this includes techniques or standardized protocols for targeted exams where dose is matched to indication/reason for exam; i.e. extremities or head) *Use of iterative reconstruction technique DLP: 430 mGy-cm FINDINGS: LUNG BASES: The visualized lung bases are unremarkable. LIVER, GALLBLADDER, AND BILIARY TREE: The liver is normal in size, shape, and attenuation. No focal hepatic lesion or biliary ductal dilatation is present. The gallbladder is unremarkable with no evidence of radiopaque gallstones, gallbladder wall thickening, or obvious pericholecystic inflammatory changes. PANCREAS: Unremarkable. SPLEEN: Unremarkable. ADRENAL GLANDS: Unremarkable. KIDNEYS AND URETERS: The kidneys are normal in size, shape, and attenuation. No hydronephrosis, hydroureter, or calculi seen. No perinephric stranding. BLADDER: The bladder is unremarkable. Periurethral enhancement appears prominent. GASTROINTESTINAL TRACT: Moderate fecal retention in the colon. No small bowel obstruction. ABDOMINAL WALL: No significant hernia is appreciated. LYMPH NODES: No bulky lymphadenopathy. VASCULAR: Normal caliber abdominal aorta. PELVIC VISCERA: Intrauterine device is in place. 3.3 x 4.1 x 4.0 cm cyst in the right ovary. Trace free fluid in the pelvis. OSSEOUS STRUCTURES: No destructive bone lesions. CT/CT abdomen pelvis w IV con IMPRESSION: Prominent periurethral enhancement. Advise clinical correlation. 3.3 x 4.1 x 4.0 cm right ovarian cyst. No further imaging follow-up is needed. Electronically signed by: Carroll Durham MD 07/06/2024 01:54 PM EDT
--- NOTE | ~2024-07-06 | US_ITS ---
EXAMINATION: US PELVIS CLINICAL INFORMATION: Right ovarian cyst. Abdominal pain. Irregular menses. COMPARISON: CT abdomen/pelvis July 06, 2024 TECHNIQUE: Ultrasound of the pelvis is performed using both transabdominal and transvaginal transducers along with Doppler. Transvaginal imaging is performed due to inadequate visualization transabdominally. FINDINGS: Uterus: The uterus is anteverted. Uterine echotexture is heterogeneous. The uterus measures 8.5 x 4.1 x 5.3 cm. The endometrial stripe measures 2 mm in thickness. Fluid in the cervical canal. Intrauterine device is in satisfactory position within the endometrium. Adnexa: Both ovaries are visualized. There is normal color flow to the adnexa. There is no ovarian torsion. Right ovary measures 5.3 x 3.7 x 4.8 cm. Minimally complex right ovarian cyst measures 3.8 x 3.4 x 3.8 cm. No thick septations, mural nodules or internal color Doppler flow. Left ovary measures 2.4 x 2 x 6 x 3.0 cm. US/US pelvic ovarian doppler IMPRESSION: Minimally complex right ovarian cyst measuring 3.8 x 3.4 x 3.8 cm. Follow-up as clinically indicated. Electronically signed by: Carroll Durham MD 07/06/2024 03:43 PM EDT
--- NOTE | ~2024-07-06 | US_ITS ---
EXAMINATION: US PELVIS CLINICAL INFORMATION: Right ovarian cyst. Abdominal pain. Irregular menses. COMPARISON: CT abdomen/pelvis July 06, 2024 TECHNIQUE: Ultrasound of the pelvis is performed using both transabdominal and transvaginal transducers along with Doppler. Transvaginal imaging is performed due to inadequate visualization transabdominally. FINDINGS: Uterus: The uterus is anteverted. Uterine echotexture is heterogeneous. The uterus measures 8.5 x 4.1 x 5.3 cm. The endometrial stripe measures 2 mm in thickness. Fluid in the cervical canal. Intrauterine device is in satisfactory position within the endometrium. Adnexa: Both ovaries are visualized. There is normal color flow to the adnexa. There is no ovarian torsion. Right ovary measures 5.3 x 3.7 x 4.8 cm. Minimally complex right ovarian cyst measures 3.8 x 3.4 x 3.8 cm. No thick septations, mural nodules or internal color Doppler flow. Left ovary measures 2.4 x 2 x 6 x 3.0 cm. US/US pelvic and transvaginal IMPRESSION: Minimally complex right ovarian cyst measuring 3.8 x 3.4 x 3.8 cm. Follow-up as clinically indicated. Electronically signed by: Carroll Durham MD 07/06/2024 03:43 PM EDT
[2024-07-06 09:56] VITALS: BP 106/67; PULSE 80; RESP 20; TEMP 37; O2SAT 100; BMI 24.0
[2024-07-06 10:19] LABS: MANUAL DIFF FLAG NO
[2024-07-06 10:20] LABS: Basophils Percent Auto 0.5 % (0-2); Eosinophils Absolute Auto 0.1 X10*3/uL (0.0-0.4); Eosinophils Percent Auto 1.2 % (0-4); Hematocrit 36.1 % (37.0-47.0); Hemoglobin 12.3 g/dl (12.0-16.0); Imm Gran Abs Auto 0.01 X10*3/uL (0.00-0.03); Imm Gran Pct Auto 0.2 % (0.0-0.4); Lymphocytes Absolute Auto 2.4 X10*3/uL (1.2-4.9); Lymphocytes Percent Auto 37.2 % (20-40); Mean Corpuscular HGB Conc 34.1 g/dl (31.0-35.0); Mean Corpuscular Hemoglobin 28.9 pg (27.0-33.0); Mean Corpuscular Volume 84.7 fL (80.0-98.0); Monocytes Absolute Auto 0.6 X10*3/uL (0.1-1.2); Monocytes Percent Auto 8.6 % (2-11); Neutrophils Absolute Auto 3.4 x10*3/uL (2.0-8.3); Neutrophils Percent Auto 52.3 % (45-73); Platelet Count 233 X10*3/uL (160-400); Red Blood Count 4.26 X10*6/uL (4.20-5.50); Red Cell Distribution Width 13.1 % (11.0-16.0); White Blood Count 6.4 X10*3/uL (4.8-10.8)
[2024-07-06 10:24] LABS: Appearance Urine Cloudy; Color Urine Yellow; Glucose Urine UA Negative (Negative); Leukocyte Esterase Urine Trace (Negative); Nitrite Urine Negative (Negative); PH 6.5 (5.0-9.0); Specific Gravity - Urine 1.025 (1.005-1.025); UMIC TRIGGER UACC YES; Urine Blood Negative (Negative); Urine Ketones Negative (Negative); Urine Protein Negative (Neg-Trace)
[2024-07-06 10:26] LABS: UPreg QC Valid YES; Urine Pregnancy NEGATIVE (NEGATIVE)
[2024-07-06 10:39] LABS: Bacteria Urine 1+ (None Seen); Hyaline Casts Urine 0-2 /LPF (0-2); RBC Urine 0-2 /HPF (0-2); WBC Urine 0-5 /HPF (0-5)
[2024-07-06 11:08] LABS: Alanine Aminotransferase 12 U/L (0-31); Alkaline Phosphatase 49 U/L (39-117); Anion Gap 10 (12-20); Aspartate Amino Transferase 16 U/L (5-31); Bilirubin Total 0.3 mg/dL (0.0-1.0); Blood Urea Nitrogen 11 mg/dL (9-16); Calcium 9.3 mg/dL (8.4-10.2); Carbon Dioxide 25 mmol/L (22-29); Chloride 105 mmol/L (96-108); Creatinine Clr Calc Pharmacy 98.1; Estimated Glomerular Filt Rate > 60; Glucose Random 91 mg/dL (60-115); Lipase 22 U/L (8-78); Potassium 3.4 mmol/L (3.3-5.1); Sodium 137 mmol/L (135-145); Total Protein 6.6 g/dL (6.5-8.0)
--- NOTE | 2024-07-06 11:15 | ED.GENADULT ---
HPI - General Adult General Chief complaint: Abdominal Pain Stated complaint: Abdominal Pain Time Seen by Provider: 07/06/24 11:15 Source: patient Mode of arrival: ambulatory Limitations: no limitations History of Present Illness ED Provider: Cat Carvalho PA-C HPI narrative: Patient is a 23 year old assigned female at with no reported medical history presenting to the emergency department today with left sided abdominal pain. Patient states that she woke up this morning with significant left sided abdominal pain that is progressively worsening. Patient denies any dizziness, lightheadedness, nausea, vomiting, fever, chills, blurry vision, double vision, loss of vision, chest pain, difficulty breathing, shortness of breath, back pain, night sweats, pain with urination, increased urinary frequency, increased urinary urgency, blood in her urine or stool, syncope or a near syncopal episode, recent trauma or falls, bowel incontinence, bladder incontinence, or any other complaints at this time. Relieving factors: none Exacerbating factors: none Associated symptoms: denies other symptoms Treatments prior to arrival: none Related Data Previous Rx's ?Medication ?Instructions ?Recorded levofloxacin 500 mg tablet 500 mg PO DAILY #6 tabs 08/09/23 phenazopyridine 100 mg tablet 100 mg PO TID 6 doses #6 tabs 08/09/23 cefuroxime axetil 250 mg tablet 250 mg PO BID 7 days #14 tabs 11/12/23 ibuprofen 600 mg tablet 600 mg PO Q6H PRN fever or pain 12/17/23 #30 tabs morphine 15 mg immediate release 15 mg PO Q8H PRN pain #20 tabs 12/17/23 tablet cyclobenzaprine 10 mg tablet 10 mg PO TID PRN muscle spasm #15 02/07/24 tabs doxycycline hyclate 100 mg tablet 100 mg PO BID 7 days #14 tabs 07/06/24 Allergies Allergy/AdvReac Type Severity Reaction Status Date / Time No Known Allergies Allergy Verified 07/06/24 09:59 Review of Systems Constitutional: Constitutional: Reports no additional constitutional complaints, Denies chills, Denies fever(s) and Denies night sweats Eyes: Eyes: Reports no additional eye complaints, Denies blurry vision, Denies change in vision, Denies diplopia, Denies eye discharge, Denies loss of vision and Denies eye pain ENT: Denies dizziness Cardiovascular: Cardiovascular: Reports no additional cardiovascular complaints, Denies chest pain, Denies lightheadedness, Denies Loss of Consciousness and Denies dyspnea Respiratory: Respiratory: Reports no additional respiratory complaints and Denies dyspnea Gastrointestinal: Gastrointestinal: Reports no additional gastrointestinal complaints, Reports abdominal pain, Denies melena, Denies hematochezia, Denies change in bowel habits and Denies change in stool character Genitourinary: Genitourinary: Denies hematuria, Denies urinary frequency, Denies dysuria, Denies urinary incontinence, Denies urinary hesitancy and Denies urinary urgency Musculoskeletal: Musculoskeletal: Reports no additional musculoskeletal complaints, Denies numbness and Denies tingling Neurologic: Denies dizziness, Denies loss of vision, Denies numbness and Denies tingling Psychiatric: Psychiatric: Reports no additional psychiatric complaints Endocrine: Endocrine: Reports no additional endocrine complaints Hematologic/Lymphatic: Hematologic/Lymphatic: Reports no additional hematologic/lymphatic complaints Allergic/Immunologic: Allergic/Immunologic: Reports no additional allergic/immunologic complaints PMFSH Past Medical History Attestation statement: The following information was validated with the patient. Source: old records reviewed and nursing notes reviewed Social History Social History Alcohol intake: never Patient Tobacco Use Status: Never used Tobacco Smoked in Last 30 Days: No Use of substances other than those prescribed or required for medical reasons: No Advance Directives: No Advance Directives Information Provided: No Do you have a plan to hurt others: No Plan Patient : No Current occupation: rt handed Physical Exam ED Vital Signs: Vital Signs - 24 hr 07/06/24 09:56 07/06/24 11:26 07/06/24 12:37 Temperature 98.6 F 98.6 F 98.5 F Pulse Rate 80 82 75 Respiratory Rate 20 16 16 Blood Pressure 106/67 114/70 116/65 Pulse Oximetry 100 100 99 Oxygen Delivery Method Room Air Room Air Room Air BMI result Body Mass Index 24.0 Const General: cooperative, no acute distress, alert and awake Nutritional Appearance: well nourished Orientation/consciousness: patient oriented x3 Limitations: no limitations HENMT Head: Yes normal to inspection and Yes atraumatic Ears: hearing grossly normal bilaterally and external ears normal General nose exam: Normal external nose present, no nasal discharge noted and no epistaxis Face and sinus: Yes normal facial exam, No abrasion and No laceration Mouth: Normal oral and palatal mucosa present, no drooling and no muffled voice Eyes General: appearance normal, both eyes and all related structures Periorbital: periorbital findings normal Eyelids: Yes eyelids normal Conjunctivae: conjunctivae normal Pupils: Equal, round and reactive pupils present EOM: EOMs intact bilaterally Neck Neck: Yes normal visual inspection, Yes full ROM and Yes no lymphadenopathy Chest Chest palpation & inspection: normal inspection of the chest Resp Effort & Inspection: normal respiratory effort and able to speak in complete sentences GI Inspection: Yes normal to inspection Palpation (GI): Soft to palpation, not firm, Tenderness to palpation present (GI) in the LLQ and in the LUQ, no guarding and not rigid Neuro General: patient oriented x3 and moves all extremities Cranial nerves: Yes Equal, round and reactive pupils present Cognition (Neuro): normal cognition Extrem General: Yes normal to inspection, Yes full ROM and Yes capillary refill normal Psych Appearance: grossly normal Mental Status: mental status grossly normal Affect: normal affect Attitude: cooperative Thought process: Normal thought process present Thought content: Normal thought content present Insight: Good insight present (Psych) Medications Administered Discontinued Medications Generic Name Dose Route Start Last Admin Trade Name Freq PRN Reason Stop Dose Admin Hydromorphone HCl 1 mg 07/06/24 13:00 07/06/24 13:24 Hydromorphone Hcl 1 Mg/Ml Syringe IVPUSH 07/06/24 13:01 1 mg ONCE ONE Administration Protocol Iohexol 100 ml 07/06/24 12:25 07/06/24 12:26 Iohexol 350 Mg/Ml 100 Ml Infus..Btl IV 07/06/24 12:26 85 ml ONCE ONE Administration Ketorolac Tromethamine 15 mg 07/06/24 14:48 07/06/24 14:59 Ketorolac Tromethamine 15 Mg/Ml Vial IVPUSH 07/06/24 14:49 15 mg ONCE ONE Administration Morphine Sulfate 4 mg 07/06/24 11:26 07/06/24 11:32 Morphine Sulfate 4 Mg/Ml Cartridge IVPUSH 07/06/24 11:27 4 mg ONCE ONE Administration Protocol Ondansetron HCl 4 mg 07/06/24 11:26 07/06/24 11:32 Ondansetron Hcl 4 Mg/2 Ml Vial IVPUSH 07/06/24 11:27 4 mg ONCE ONE Administration Medical Decision Making Medical Decision Making [facility] Narrative: Patient is a 23 year old assigned female at with no reported medical history presenting to the emergency department today with lower abdominal pain. Patient's physical exam was as noted in the physical exam portion of this note. Patient's blood work was unremarkable. Patient's urine showed no acute process. Patient's CT abdomen / pelvis showed prominent periurethral enhancement and a 3.3 x 4.1 x 4.0cm right ovarian cyst. I spoke to the urologist who suggested it may be an infected skenes gland and recommended doxycycline 100mg BID x 7 days. Given the patient's cystic findings on CT scan and continued abdominal pain, US doppler of the ovaries ordered and showed good flow. I explained my physical exam findings as well as all test results to the patient. I answered all questions asked by the patient. I stressed the importance of the patient taking her medication as directed (either prescribed or as the over the counter packaging recommends). I stressed the importance of the patient following up with her primary care provider, an OBGYN, and a urologist. I stressed the importance of the patient returning to the emergency department immediately if her symptoms were to worsen or if she were to develop any dizziness, shortness of breath, difficulty breathing, chest pain, blurry vision, loss of vision, nausea, vomiting, abdominal pain, fever, chills, back pain, or any other complaints. Patient verbalized agreement and understanding with this treatment plan and discharge. Differential Diagnosis Differential Diagnoses: The differential diagnosis associated with the presentation includes Ovarian torsion Infected skenes gland UTI Constipation Admission/Observation Consideration of admission/observation: Escalation of care including admission/observation considered Patient would have been admitted to the hospital had her work up had any findings where hospital admission was appropriate and her clinical presentation warranted hospital admission. Consult Healthcare Provider Management of the patient was discussed with: Forest Engineer (spoke to the urologist as noted in the MDM Rationale portion of this note.) Lab Data [facility] Lab Attestation statement: I reviewed the patient's lab results. My interpretation of these results are in the MDM Rationale portion of this note. 07/06/24 10:14 07/06/24 10:14 Labs: Lab Results 07/06/24 Range/Units 10:14 WBC 6.4 (4.8-10.8) X10*3/uL RBC 4.26 (4.20-5.50) X10*6/uL Hgb 12.3 (12.0-16.0) g/dl Hct 36.1 L (37.0-47.0) % MCV 84.7 (80.0-98.0) fL MCH 28.9 (27.0-33.0) pg MCHC 34.1 (31.0-35.0) g/dl RDW 13.1 (11.0-16.0) % Plt Count 233 (160-400) X10*3/uL MPV 9.0 L (9.4-12.3) fL Immature Gran % (Auto) 0.2 (0.0-0.4) % Neut % (Auto) 52.3 (45-73) % Lymph % (Auto) 37.2 (20-40) % Real % (Auto) 8.6 (2-11) % Eos % (Auto) 1.2 (0-4) % Baso % (Auto) 0.5 (0-2) % Lymph # (Auto) 2.4 (1.2-4.9) X10*3/uL Real # (Auto) 0.6 (0.1-1.2) X10*3/uL Eos # (Auto) 0.1 (0.0-0.4) X10*3/uL Baso # (Auto) 0.0 (0.0-0.2) X10*3/uL Abs Immat Gran (auto) 0.01 (0.00-0.03) X10*3/uL Absolute Neuts (auto) 3.4 (2.0-8.3) x10*3/uL Absolute Nucleated RBC 0.000 (0.0-0.012) X10*3/uL Nucleated RBC % (auto) 0.0 (0.0-0.2) /100WBC Sodium 137 (135-145) mmol/L Potassium 3.4 (3.3-5.1) mmol/L Chloride 105 (96-108) mmol/L Carbon Dioxide 25 (22-29) mmol/L Anion Gap 10 L (12-20) BUN 11 (9-16) mg/dL Creatinine 0.77 (0.5-1.4) mg/dL Estim Creat Clear Calc 98.1 Estimated GFR > 60 Random Glucose 91 (60-115) mg/dL Calcium 9.3 (8.4-10.2) mg/dL Total Bilirubin 0.3 (0.0-1.0) mg/dL AST 16 (5-31) U/L ALT 12 (0-31) U/L Alkaline Phosphatase 49 (39-117) U/L Total Protein 6.6 (6.5-8.0) g/dL Albumin 4.0 (3.5-5.0) g/dL Lipase 22 (8-78) U/L Urine Color Yellow Urine Appearance Cloudy Urine pH 6.5 (5.0-9.0) Ur Specific [place] 1.025 (1.005-1.025) Urine Protein Negative (Neg-Trace) mg/dL Urine Glucose (UA) Negative (Negative) mg/dL Urine Ketones Negative (Negative) mg/dL Urine Blood Negative (Negative) Urine Nitrite Negative (Negative) Ur Leukocyte Esterase Trace H (Negative) Urine RBC 0-2 (0-2) /HPF Urine WBC 0-5 (0-5) /HPF Ur Squamous Epith Cells 11-20 (0-2) /HPF Urine Bacteria 1+ (None Seen) Hyaline Casts 0-2 (0-2) /LPF Urine Test NEGATIVE (NEGATIVE) Independent Interpretation I performed an independent interpretation of an: CT Scan Interpretation: My interpretation is in agreement with the radiologist's impression of this imaging study. EXAMINATION: CT ABDOMEN AND PELVIS WITH CONTRAST CLINICAL INFORMATION: Abdominal pain. COMPARISON: None available. TECHNIQUE: Multidetector volumetric images were obtained from the superior aspect of the liver through the pubic symphysis following administration 85 mL of Omnipaque 350 intravenous contrast. Sagittal and coronal reformatted images were obtained on the technologist's workstation. Oral contrast: No This CT examination was performed using dose optimization techniques as appropriate, variously including the following: *Automated exposure control *Adjustment of mA and/or kV according to patient size (this includes techniques or standardized protocols for targeted exams where dose is matched to indication/reason for exam; i.e. extremities or head) *Use of iterative reconstruction technique DLP: 430 mGy-cm FINDINGS: LUNG BASES: The visualized lung bases are unremarkable. LIVER, GALLBLADDER, AND BILIARY TREE: The liver is normal in size, shape, and attenuation. No focal hepatic lesion or biliary ductal dilatation is present. The gallbladder is unremarkable with no evidence of radiopaque gallstones, gallbladder wall thickening, or obvious pericholecystic inflammatory changes. PANCREAS: Unremarkable. SPLEEN: Unremarkable. ADRENAL GLANDS: Unremarkable. KIDNEYS AND URETERS: The kidneys are normal in size, shape, and attenuation. No hydronephrosis, hydroureter, or calculi seen. No perinephric stranding. BLADDER: The bladder is unremarkable. Periurethral enhancement appears prominent. GASTROINTESTINAL TRACT: Moderate fecal retention in the colon. No small bowel obstruction. ABDOMINAL WALL: No significant hernia is appreciated. LYMPH NODES: No bulky lymphadenopathy. VASCULAR: Normal caliber abdominal aorta. PELVIC VISCERA: Intrauterine device is in place. 3.3 x 4.1 x 4.0 cm cyst in the right ovary. Trace free fluid in the pelvis. OSSEOUS STRUCTURES: No destructive bone lesions. CT/CT abdomen pelvis w IV con IMPRESSION: Prominent periurethral enhancement. Advise clinical correlation.3.3 x 4.1 x 4.0 cm right ovarian cyst. No further imaging follow-up is needed. Electronically signed by: Carroll Durham MD 07/06/2024 01:54 PM EDT RP Dictated By: Tiffany Durham MD Signed By: Electronically signed by Tiffany Durham MD 07/06/24 1354 Radiology Impression Discussion of test interpretation with radiology: I have reviewed the radiologist's reading. Prescription Management I considered prescription management with: Antibiotic (patient prescribed an antibiotic for infected skenes gland) Critical Care Time Critical Care Time Critical Care Time: Yes Total Critical Care Time: 48 Attestation: I spent 48 minutes of Critical Care Time with this patient. This does not include time spent on separately reported billable procedures. Discharge Plan Discharge Clinical Impression: Adenitis of Arrington gland, Ovarian cyst, Constipation Patient Disposition: Home, Self-Care Instructions: Ovarian Cyst (ED), Constipation (DC) Additional Instructions: Take miralax over the counter as prescribed to help with your constipation. You have an infection of your Arrington gland and a large right ovarian cyst. Follow up with your primary care provider, urologist (for the skene gland infection), and an OBGYN for your ovarian cyst. Return to the emergency department immediately if your symptoms worsen or if you develop any dizziness, shortness of breath, difficulty breathing, chest pain, blurry vision, loss of vision, nausea, vomiting, abdominal pain, fever, chills, back pain, or any other complaints. Prescriptions: New doxycycline hyclate 100 mg tablet 100 mg PO BID 7 Days Qty: 14 0RF No Action morphine 15 mg tablet 15 mg PO Q8H PRN (Reason: pain) Qty: 20 0RF Rx Instructions: Partial Fill upon patient request. ibuprofen 600 mg tablet 600 mg PO Q6H PRN (Reason: fever or pain) Qty: 30 0RF cyclobenzaprine 10 mg tablet 10 mg PO TID PRN (Reason: muscle spasm) Qty: 15 0RF levofloxacin 500 mg tablet 500 mg PO DAILY Qty: 6 0RF phenazopyridine 100 mg tablet 100 mg PO TID Qty: 6 0RF cefuroxime axetil 250 mg tablet 250 mg PO BID 7 Days Qty: 14 0RF Referrals: [facility] Family Medicine [Provider Group] (Call to establish and follow up with a primary care provider. If you already have a primary care provider, please follow up with them.) [facility] Primary Care, Kris [Provider Group] (Call to establish and follow up with a primary care provider. If you already have a primary care provider, please follow up with them.) [facility] Primary Care,Edith [Provider Group] (Call to establish and follow up with a primary care provider. If you already have a primary care provider, please follow up with them.) [facility] Urology Services [Provider Group] (Call to establish and follow up with a urologist.) Rupert Portillo MD [Physician] - (Call to establish and follow up with an OBGYN (for your ovarian cyst)) Stand Alone Forms: Work/School Release Print Language: [place]
[2024-07-06 11:26] VITALS: BP 114/70; PULSE 82; RESP 16; TEMP 37; O2SAT 100
[2024-07-06] MEDS: ondansetron HCL 4 MG/2 ML VIAL IVPUSH (11:32)
[2024-07-06] MEDS: Morphine Sulfate 4 MG/ML CARTRIDGE IVPUSH (11:32)
--- NOTE | 2024-07-06 11:44 | PC.NURSE ---
a&ox4. vss and up to date. pt presents to the ED w/ sudden onset intermittent LLQ abd pain radiating to LL pelvis. pt endorses nausea but denies any episodes of vomiting/diarrhea/fevers. abd tender w/ palpation. normoactive BS x all quadrants. labs/urine obtained/sent to lab in triage. 20gIV placed in the right AC - pt medicated per provider order. effectiveness pending. pt waiting to go to CT at this time. no sob/wob noted. respirations even/unlabored. family bedside for support. plan of care ongoing. call fitch placed within reach.
[2024-07-06] MEDS: iohexoL 350 MG/ML 100 ML INFUS..BTL IV (12:26)
--- NOTE | 2024-07-06 12:27 | PC.NURSE ---
pt to CT at this time.
[2024-07-06 12:37] VITALS: BP 116/65; PULSE 75; RESP 16; TEMP 36.9; O2SAT 99
[2024-07-06] MEDS: HYDROmorphone HCl 1 MG/ML SYRINGE IVPUSH (13:24)
--- NOTE | 2024-07-06 13:25 | PC.NURSE ---
pt verbalizing increase in LLQ despite previous interventions - pt medicated per provider order. effectiveness pending. CT results remain pending at this time. respirations even/unlabored. plan of care ongoing.
[2024-07-06] MEDS: Ketorolac Tromethamine 15 MG/ML VIAL IVPUSH (14:59)
[2024-07-06 16:08] VITALS: BP 109/70; PULSE 90; RESP 16; TEMP 37; O2SAT 96
[2024-07-06 16:27] VITALS: BP 109/70; PULSE 90; RESP 16; TEMP 37; O2SAT 96
== END 2024-07-06 16:28 | disposition home or self-care (01) ==
PROVIDERS: Emergency Provider Emergency Medicine
DX: R10.32 Left lower quadrant pain (principal); N83.291 Other ovarian cyst, right side; R11.0 Nausea; R10.2 Pelvic and perineal pain; Z79.899 Other long term (current) drug therapy
CPT/HCPCS: 36415; 74177; 76830; 76856; 80053; 81001; 81025; 83690; 85025; 93975; 96374; 96375; 99284; 99285; J1170; J1885; J2270; J2405; Q9967

== ENCOUNTER 2024-07-17 21:11 | Emergency (ER) | payer OTHER, SELFPAY ==
[2024-07-17 21:20] VITALS: BP 114/70; PULSE 89; RESP 18; TEMP 36.8; O2SAT 97; BMI 23.3
[2024-07-17 21:40] LABS: MANUAL DIFF FLAG NO
[2024-07-17 21:41] LABS: Basophils Absolute Auto 0.1 X10*3/uL (0.0-0.2); Basophils Percent Auto 0.7 % (0-2); Eosinophils Absolute Auto 0.2 X10*3/uL (0.0-0.4); Eosinophils Percent Auto 3.2 % (0-4); Hematocrit 38.7 % (37.0-47.0); Imm Gran Abs Auto 0.02 X10*3/uL (0.00-0.03); Imm Gran Pct Auto 0.3 % (0.0-0.4); Lymphocytes Absolute Auto 3.4 X10*3/uL (1.2-4.9); Lymphocytes Percent Auto 48.3 % (20-40); Mean Corpuscular HGB Conc 33.6 g/dl (31.0-35.0); Mean Corpuscular Hemoglobin 28.5 pg (27.0-33.0); Mean Corpuscular Volume 84.9 fL (80.0-98.0); Mean Platelet Volume 9.6 fL (9.4-12.3); Monocytes Absolute Auto 0.5 X10*3/uL (0.1-1.2); Monocytes Percent Auto 7.5 % (2-11); Neutrophils Absolute Auto 2.8 x10*3/uL (2.0-8.3); Platelet Count 283 X10*3/uL (160-400); Red Blood Count 4.56 X10*6/uL (4.20-5.50)
[2024-07-17 21:45] LABS: Appearance Urine Cloudy; Color Urine Yellow; Glucose Urine UA Negative (Negative); Leukocyte Esterase Urine Trace (Negative); Nitrite Urine Negative (Negative); PH 5.5 (5.0-9.0); Specific Gravity - Urine 1.015 (1.005-1.025); UMIC TRIGGER UACC YES; Urine Blood Large (3+) (Negative); Urine Ketones Negative (Negative); Urine Protein Negative (Neg-Trace)
[2024-07-17 21:46] LABS: UPreg QC Valid YES; Urine Pregnancy NEGATIVE (NEGATIVE)
[2024-07-17 21:48] LABS: Bacteria Urine None Seen (None Seen); Hyaline Casts Urine 0-2 /LPF (0-2); WBC Urine 0-5 /HPF (0-5)
[2024-07-17 22:01] LABS: Alanine Aminotransferase 12 U/L (0-31); Albumin Level 4.3 g/dL (3.5-5.0); Alkaline Phosphatase 50 U/L (39-117); Anion Gap 11 (12-20); Aspartate Amino Transferase 18 U/L (5-31); Bilirubin Direct 0.1 mg/dL (0.0-0.5); Bilirubin Total 0.4 mg/dL (0.0-1.0); Blood Urea Nitrogen 6 mg/dL (9-16); Calcium 9.7 mg/dL (8.4-10.2); Carbon Dioxide 25 mmol/L (22-29); Chloride 108 mmol/L (96-108); Creatinine Clr Calc Pharmacy 112.5; Estimated Glomerular Filt Rate > 60; Glucose Random 90 mg/dL (60-115); Lipase 22 U/L (8-78); Potassium 3.8 mmol/L (3.3-5.1); Sodium 140 mmol/L (135-145); Total Protein 7.3 g/dL (6.5-8.0)
--- NOTE | 2024-07-17 23:24 | PC.NURSE ---
pt from home, a&ox4, respirations even and unlabored. pt reporting being seen here previously for constipation, being prescribed medications without relief. pt reports last bowel movement was 2 weeks ago and reports it was small amounts of diarrhea. pt now reporting increased lower abdominal discomfort. denies n/v.
--- NOTE | 2024-07-17 23:32 | ED.GENADULT ---
HPI - General Adult General Chief complaint: Abdominal Pain Stated complaint: RX not working, ? infected cyst Time Seen by Provider: 07/17/24 23:32 Source: patient and family Mode of arrival: ambulatory Limitations: no limitations History of Present Illness ED Provider: Dr. Ott HPI narrative: Patient is a 23 yo female with no significant medical history who was seen last week for abdominal pain, found to have constipation and adenitis. She has not had a BM in over 1.5 weeks and is uncomfortable. Related Data Previous Rx's ?Medication ?Instructions ?Recorded levofloxacin 500 mg tablet 500 mg PO DAILY #6 tabs 08/09/23 phenazopyridine 100 mg tablet 100 mg PO TID 6 doses #6 tabs 08/09/23 cefuroxime axetil 250 mg tablet 250 mg PO BID 7 days #14 tabs 11/12/23 ibuprofen 600 mg tablet 600 mg PO Q6H PRN fever or pain 12/17/23 #30 tabs morphine 15 mg immediate release 15 mg PO Q8H PRN pain #20 tabs 12/17/23 tablet cyclobenzaprine 10 mg tablet 10 mg PO TID PRN muscle spasm #15 02/07/24 tabs doxycycline hyclate 100 mg tablet 100 mg PO BID 7 days #14 tabs 07/06/24 ondansetron HCl 4 mg tablet 4 mg PO Q8H PRN nausea and 07/06/24 vomiting 2 days #6 tabs lactulose 20 gram/30 mL oral 20 g (30 mL) PO TID #1,200 mL 07/17/24 solution psyllium husk (with sugar) 3.4 1 tsp PO DAILY #1,368 grams 07/17/24 gram/12 gram oral powder (Metamucil (with sugar)) Allergies Allergy/AdvReac Type Severity Reaction Status Date / Time No Known Allergies Allergy Verified 07/17/24 21:20 Review of Systems Review of Systems: Yes all other systems are reviewed and are negative Neurologic: Denies Sensory deficit (Neuro) [facility] Social History Social History Alcohol intake: never Patient Tobacco Use Status: Never used Tobacco Smoked in Last 30 Days: No Use of substances other than those prescribed or required for medical reasons: No Advance Directives: No Advance Directives Information Provided: No Do you have a plan to hurt others: No Plan Patient : No Current occupation: rt handed Physical Exam ED Vital Signs: Vital Signs - 24 hr 07/17/24 21:20 Temperature 98.2 F Pulse Rate 89 Respiratory Rate 18 Blood Pressure 114/70 Pulse Oximetry 97 Oxygen Delivery Method Room Air BMI result Body Mass Index 23.3 Const General: healthy appearing Nutritional Appearance: average body habitus Orientation/consciousness: oriented to person and patient oriented x3 Limitations: no limitations HENMT Head: Yes normal to inspection Ears: external ears normal General nose exam: Normal external nose present Mouth: Normal oral and palatal mucosa present and oropharynx normal Throat: Yes posterior oropharynx normal Eyes General: appearance normal, both eyes and all related structures Neck Neck: Yes normal visual inspection Chest Chest palpation & inspection: normal inspection of the chest Resp Auscultation: clear to auscultation bilaterally Cardio Jugular venous distension: no JVD Rate: regular rate Rhythm: regular rhythm Heart sounds: S1 normal heart sound present and S2 normal heart sound present GI Inspection: Yes normal to inspection Palpation (GI): Soft to palpation, nontender and No hepatosplenomegaly present Auscultation: normal bowel sounds General: Yes no CVA tenderness Back/Spine/Pelvis Back: no CVA tenderness Skin General skin exam: no rashes or lesions noted Neuro General: oriented to person and patient oriented x3 Cranial nerves: Yes CN's II-XII intact bilaterally Motor exam (neuro): 5/5 motor strength present throughout Sensory Exam: No Sensory deficit (Neuro) Extrem General: Yes normal to inspection Psych Appearance: grossly normal Course Reevaluation(s) Reevaluation #1: labs and urine negative, soft abdomen, will place on medication for constipation Time: 23:49 Medical Decision Making Differential Diagnosis Differential Diagnoses: The differential diagnosis associated with the presentation includes (appendicitis, cholecystitis, ovarian cyst, UTI, constipation) Admission/Observation Consideration of admission/observation: Escalation of care including admission/observation considered (upon arrival admission was considered) Lab Data 07/17/24 21:33 07/17/24 21:33 Labs: Lab Results 07/17/24 Range/Units 21:33 WBC 7.0 (4.8-10.8) X10*3/uL RBC 4.56 (4.20-5.50) X10*6/uL Hgb 13.0 (12.0-16.0) g/dl Hct 38.7 (37.0-47.0) % MCV 84.9 (80.0-98.0) fL MCH 28.5 (27.0-33.0) pg MCHC 33.6 (31.0-35.0) g/dl RDW 13.0 (11.0-16.0) % Plt Count 283 (160-400) X10*3/uL MPV 9.6 (9.4-12.3) fL Immature Gran % (Auto) 0.3 (0.0-0.4) % Neut % (Auto) 40.0 L (45-73) % Lymph % (Auto) 48.3 H (20-40) % [place] % (Auto) 7.5 (2-11) % Eos % (Auto) 3.2 (0-4) % Baso % (Auto) 0.7 (0-2) % Lymph # (Auto) 3.4 (1.2-4.9) X10*3/uL [place] # (Auto) 0.5 (0.1-1.2) X10*3/uL Eos # (Auto) 0.2 (0.0-0.4) X10*3/uL Baso # (Auto) 0.1 (0.0-0.2) X10*3/uL Abs Immat Gran (auto) 0.02 (0.00-0.03) X10*3/uL Absolute Neuts (auto) 2.8 (2.0-8.3) x10*3/uL Absolute Nucleated RBC 0.000 (0.0-0.012) X10*3/uL Nucleated RBC % (auto) 0.0 (0.0-0.2) /100WBC Sodium 140 (135-145) mmol/L Potassium 3.8 (3.3-5.1) mmol/L Chloride 108 (96-108) mmol/L Carbon Dioxide 25 (22-29) mmol/L Anion Gap 11 L (12-20) BUN 6 L (9-16) mg/dL Creatinine 0.70 (0.5-1.4) mg/dL Estim Creat Clear Calc 112.5 Estimated GFR > 60 Random Glucose 90 (60-115) mg/dL Calcium 9.7 (8.4-10.2) mg/dL Total Bilirubin 0.4 (0.0-1.0) mg/dL Direct Bilirubin 0.1 (0.0-0.5) mg/dL AST 18 (5-31) U/L ALT 12 (0-31) U/L Alkaline Phosphatase 50 (39-117) U/L Total Protein 7.3 (6.5-8.0) g/dL Albumin 4.3 (3.5-5.0) g/dL Lipase 22 (8-78) U/L Urine Color Yellow Urine Appearance Cloudy Urine pH 5.5 (5.0-9.0) Ur Specific [place] 1.015 (1.005-1.025) Urine Protein Negative (Neg-Trace) mg/dL Urine Glucose (UA) Negative (Negative) mg/dL Urine Ketones Negative (Negative) mg/dL Urine Blood Large (3+) H (Negative) Urine Nitrite Negative (Negative) Ur Leukocyte Esterase Trace H (Negative) Urine RBC 6-10 H (0-2) /HPF Urine WBC 0-5 (0-5) /HPF Ur Squamous Epith Cells 6-10 (0-2) /HPF Urine Bacteria None Seen (None Seen) Hyaline Casts 0-2 (0-2) /LPF Urine Test NEGATIVE (NEGATIVE) Independent Historian Clinical information obtained from an independent historian. History obtained from or confirmed by: Spouse Tests considered The following testing was considered but not selected: CT of abdomen considered but patient with normal exam and labs and patient had recent CT Prescription Management I considered prescription management with: Antibiotic (no UTI seen) Discharge Plan Discharge Clinical Impression: Constipation Patient Disposition: Home, Self-Care Instructions: Constipation (ED) Additional Instructions: Take lactulose until stool is liquid then start the metamucil and take everyday Prescriptions: New lactulose 20 gram/30 mL solution 20 g PO TID Qty: 1200 0RF Rx Instructions: take until stool is liquid then stop Metamucil (with sugar) 3.4 gram/12 gram powder 1 tsp PO DAILY Qty: 1368 0RF No Action morphine 15 mg tablet 15 mg PO Q8H PRN (Reason: pain) Qty: 20 0RF Rx Instructions: Partial Fill upon patient request. ibuprofen 600 mg tablet 600 mg PO Q6H PRN (Reason: fever or pain) Qty: 30 0RF cyclobenzaprine 10 mg tablet 10 mg PO TID PRN (Reason: muscle spasm) Qty: 15 0RF doxycycline hyclate 100 mg tablet 100 mg PO BID 7 Days Qty: 14 0RF ondansetron HCl 4 mg tablet 4 mg PO Q8H PRN (Reason: nausea and vomiting) 2 Days Qty: 6 0RF levofloxacin 500 mg tablet 500 mg PO DAILY Qty: 6 0RF phenazopyridine 100 mg tablet 100 mg PO TID Qty: 6 0RF cefuroxime axetil 250 mg tablet 250 mg PO BID 7 Days Qty: 14 0RF Referrals: Physician,Unknown J [Primary Care Provider] - 5 days Print Language: Armenian
[2024-07-17] MEDS: Lactulose 20 GM/30 ML SOLUTION 30 GM PO (23:58)
[2024-07-18 00:01] VITALS: BP 109/76; PULSE 76; RESP 17; TEMP 37.2; O2SAT 99
[2024-07-18 00:02] VITALS: BP 109/76; PULSE 76; RESP 17; TEMP 37.2; O2SAT 99
== END 2024-07-18 00:03 | disposition home or self-care (01) ==
PROVIDERS: Emergency Provider Emergency Medicine
DX: K59.00 Constipation, unspecified (principal); Z79.899 Other long term (current) drug therapy
CPT/HCPCS: 36415; 80048; 80076; 81001; 81025; 83690; 85025; 99283; 99284